=== PATIENT | female | born 1980 | race Caucasian/White ===

== ENCOUNTER 2016-12-11 14:13 | Emergency (ER) | payer OTHER ==
[~2016-12-11] VITALS: Ht 162.6 cm; Wt 64.0 kg
[2016-12-11 14:15] VITALS: TEMP 36.7; Ht 162.6 cm; Wt 64.0 kg
[2016-12-11] MEDS ORDERED: LORAZEPAM 2 MG/ML 1 ML VIAL IV STA (14:24)
[2016-12-11 14:35] VITALS: O2SAT 100
--- NOTE | 2016-12-11 14:47 | DIAGNOSTIC IMAGING REPORT ---
CHEST ONE VIEW PORTABLE CLINICAL HISTORY: Evaluate Fever/Sepsis COMPARISON STUDY: No previous studies for comparison. FINDINGS: The bones soft tissues and hemidiaphragms are normal. The cardiomediastinal silhouette is normal. The lungs are clear. The pulmonary vasculature is normal. IMPRESSION: Negative chest. Electronically signed by: Yogi Winkler M.D. 12/11/2016 2:46 PM Dictated Date/Time: 12/11/2016 2:46 PM
--- NOTE | 2016-12-11 15:42 | EMERGENCY ROOM VISIT NOTE ---
History Report prepared by Dandre: Jacob Evangelista Under the Supervision of: Dr. Santos Terry D.O. First contact with patient: 14:19 Chief Complaint: CARDIAC ASSESSMENT Stated Complaint: CHEST PAIN,SOB,FINGER NUMBNESS History of Present Illness The patient is a 36 year old female who presents to the Emergency Room with complaints of a sudden, constant anxiety attack beginning prior to arrival. She rates her current discomfort a 10/10 in severity. The patient states that she has been working at [employer] all day and was short of breath. She reports that when her anxiety attack started, she felt hot, experienced diaphoresis, and it felt like her chest was going to explode. She also reports that it feels like she is going to and her fingers are numb. The patient states that she has had three similar cases before because of anxiety does not take any medications. She reports that the last time this happened was two weeks ago, and she was taken to [facility]. The patient notes that the cases are random, but she has noticed they seem to occur when she feels like she is going to fail or is in a lot amount of stress. The patient states that her last normal menstrual period was 5 years ago, just prior to her partial hysterectomy. Source of History: patient Onset: prior to arrival Position: other (global) Symptom Intensity: 10/10 Quality: other (anxiety attack) Timing: constant Associated Symptoms: + chest pain, + diaphoresis, + numbness (fingers) Review of Systems See HPI for pertinent positives & negatives. A total of 10 systems reviewed and were otherwise negative. Family History No pertinent family history stated. Social History Smoking Status: Current Every Day Smoker Marital Status: Housing Status: lives with family Occupation Status: employed Current/Historical Medications No Active Prescriptions or Reported Meds Allergies Coded Allergies: Morphine (Verified Allergy, Intermediate, red, can't breath, 12/11/16) Physical Exam Vital Signs Date Time Temp Pulse Resp B/P Pulse Ox O2 Delivery O2 Flow Rate FiO2 12/11/16 15:48 67 18 128/72 98 12/11/16 14:43 89 16 137/86 100 Room Air 12/11/16 14:35 100 Room Air 12/11/16 14:30 105 12/11/16 14:15 36.7 113 28 109/68 100 Room Air Physical Exam CONSTITUTIONAL/VITAL SIGNS: Reviewed / noted above. GENERAL: Non-toxic in appearance. INTEGUMENTARY: Warm, dry, and [place]. HEAD: Normocephalic. EYES: without scleral icterus or trauma. ENT/OROPHARYNX: clear and moist. LYMPHADENOPATHY/NECK: Is supple without lymphadenopathy or meningismus. RESPIRATORY: Lungs clear and equal. CARDIOVASCULAR: Regular rate and rhythm. GI/ABDOMEN: Soft and nontender. No organomegaly or pulsatile mass. No rebound or guarding. Normal bowel sounds. EXTREMITIES: Warm and well perfused. BACK: No CVA tenderness. NEUROLOGICAL: Intact without focal deficits. PSYCHIATRIC: normal affect, anxious appearing MUSCULOSKELETAL: Normally developed with good muscle tone. Medical Decision & Procedures ER Provider Diagnostic Interpretation: X ray results and stated below per my interpretation and radiology interpretation. CHEST ONE VIEW PORTABLE CLINICAL HISTORY: Evaluate Fever/Sepsis COMPARISON STUDY: No previous studies for comparison. FINDINGS: The bones soft tissues and hemidiaphragms are normal. The cardiomediastinal silhouette is normal. The lungs are clear. The pulmonary vasculature is normal. IMPRESSION: Negative chest. Electronically signed by: Yogi Winkler M.D. 12/11/2016 2:46 PM Dictated Date/Time: 12/11/2016 2:46 PM Laboratory Results Test 12/11/16 14:42 Bedside D-Dimer 137 ng/mlFEU (0-450) Bedside Troponin I 0.000 ng/ml (0-0.045) Laboratory results as stated above per my review. Medications Administered Medications (Trade) Dose Ordered Sig/Sunday Route Start Time Stop Time Status Last Admin Dose Admin Lorazepam (Ativan Inj) 1 mg NOW STAT IV 12/11/16 14:24 12/11/16 14:25 DC 12/11/16 14:43 1 MG ECG Indication: other (anxiety) Rate (beats per minute): 93 Rhythm: normal sinus Findings: no acute ischemic change, no ectopy ED Course 1422: Previous medical records were reviewed. The patient was evaluated in room B02. A complete history and physical examination was performed. 1424: Ordered Ativan Inj 1mg IV 1546: On reevaluation, the patient is resting easy. I discussed the results and findings with the patient. She verbalized agreement of the treatment plan. She was discharged home. Medical Decision the differential was considered includes acute myocardial infarction, acute coronary syndrome, myocarditis, pericarditis, pericardial effusions /tamponad, esophageal perforation, thoracic aortic dissection, pulmonary embolism, pneumonia, pneumothorax, pancreatitis, shingles, acute cholecystitis, perforated abdominal viscus, anxiety attack. This is a 36-year-old female who presents to the ED with a chief complaint of being at work and having sudden onset of anxiety attack. Her symptoms started about a half hour prior to arrival. She states that she has had 3 prior episodes similar to this. She reports a previous hysterectomy 5 years ago. The patient states that she developed shortness of breath and anxiety and tingling all over. She was feeling anxious while she was here. Her heart rate is 113. Vital signs are stable. Exam was unremarkable. D-dimer is negative. Chest x-ray was negative for acute disease. Troponin was negative. EKG showed normal sinus rhythm at a rate of 93 without acute injury or ectopy. The patient was told the results. She is felt to be stable for discharge and outpatient follow-up. She was treated with Ativan IV 1 mg. Impression Primary Impression: Anxiety attack Scribe Attestation The scribe's documentation has been prepared under my direction and personally reviewed by me in its entirety. I confirm that the note above accurately reflects all work, treatment, procedures, and medical decision making performed by me. Departure Information Dispostion Home / Self-Care Prescriptions No Active Prescriptions or Reported Meds Referrals No Doctor, Assigned (PCP) Patient Instructions Anxiety Body Response, My [facility] [employer] Additional Instructions Talk to your doctor about your symptoms. Follow-up with your doctor for further care and evaluation in 3-6 days. Return to the emergency department for worsening or new symptoms or any concerns. You have been examined and treated today on an emergency basis only. This is not a substitute for, or an effort to provide, complete comprehensive medical care. It is impossible to recognize and treat all injuries or illnesses in a single emergency department visit. It is therefore important that you follow up closely with your doctor. Call as soon as possible for an appointment.
[2016-12-11 15:48] VITALS: BP 128/72; PULSE 67; O2SAT 98
== END 2016-12-11 15:49 | disposition home or self-care (01) ==
LOC: C.EDB 14:15
DX: F41.9 Anxiety disorder, unspecified (principal); F17.200 Nicotine dependence, unspecified, uncomplicated; Z88.5 Allergy status to narcotic agent